=== PATIENT | female | born 1940 | race Caucasian/White ===

== ENCOUNTER 2016-11-03 11:19 | Outpatient (RCR) | payer MEDICARE, OTHER ==
--- OUTSIDE RECORDS SUMMARY | 2016-10-26 13:15 | XMS REPORT ---
Author Author Christine Wade Organization [facility] Address [address] [place], [place] [id number] Care Team Providers Care Design Engineer Name Role Phone Christine Wade PCP Unavailable Allergies and Adverse Reactions Name Reaction Notes Crestor Lipitor Methotrexate alopecia lactose intolerant Plan of Treatment Not available. Medications Active Name Start Date Estimated Completion Date SIG Comments aspirin 81 mg oral tablet,chewable chew 1 tablet by oral route daily folic acid 0.8 mg oral capsule take 1 capsule by oral route daily niacinamide 500 mg oral tablet take 2 tablets by oral route daily Ditropan XL 5 mg oral tablet extended release 24hr take 1 tablet (5 mg) by oral route once daily omeprazole 20 mg oral capsule,delayed release(DR/EC) take 1 capsule by oral route 2 times a day tramadol 50 mg oral tablet take 1 tablet (50 mg) by oral route every 6 hours as needed Vitamin C 1,000 mg oral tablet take 1 tablet by oral route daily Vitamin D3 5,000 unit oral tablet take 1 tablet by oral route daily Zofran ODT 4 mg oral tablet,disintegrating dissolve 1 tablet by oral route every 4 hours as needed for 2 days simethicone 80 mg oral tablet,chewable 08/30/2016 09/29/2016 chew 1 tablet by oral route 2 times a day as needed for 30 days Discontinued Name Start Date Discontinued Date SIG Comments Carafate 1 gram oral tablet 08/30/2016 take 1 tablet (1 gram) by oral route 4 times per day on an empty stomach 1 hour before meals and at bedtime did not work citalopram 10 mg oral tablet 08/30/2016 take 1 tablet (10 mg) by oral route once daily unknown Problem List Not available. Vital Signs Date Time BP-Sys(mm[Hg] BP-Mackenzie(mm[Hg]) HR(bpm) RR(rpm) Temp WT HT HC BMI BSA BMI Percentile O2 Sat(%) 08/30/2016 3:13:00 PM 117 mmHg 62 mmHg 88 bpm 22 rpm 96.3 F 105 lbs 61 in 19.84 kg/m2 1.43 m2 100 % Social History Name Description Comments Alcohol Never Tobacco Never smoker Caffeine Current every day Exercise Aerobics, daily retired History of Procedures Not available. Results Summary Not available. History Of Immunizations Not available. History of Past Illness Name Date of Onset Comments Abdominal Pain Gallbladder sludge 06/26/16 Hyponatremia UTI (lower urinary tract infection) Nausea & vomiting CAD (coronary artery disease) Dyslipidemia GERD (gastroesophageal reflux disease) Osteoarthritis TIA (transient ischemic attack) Trivial aortic valve anomaly Syncope Partial small bowel obstruction High risk medication use Diarrhea Abdominal cramps Heart Attack Weight Change 06/2016 Has lost 30 lbs in a couple of months, unintential Hemorrhoids Arthritis Anemia Diarrhea Aug 30 2016 3:42PM Payers Insurance Name Company Name Plan Name Plan Number Policy Number Policy Group Number Start Date [facility] [id number] N/A [employer] Ppo [id number] N/A History of Encounters Visit Date Visit Type Provider 08/30/2016 Office visit Christine Wade MD
== END 2016-11-10 09:12 | disposition home or self-care (01) ==
LOC: PAR 11:19
PROVIDERS: ATTEND Internal Medicine Hematology & Oncology
DX: C18.0 Malignant neoplasm of cecum (principal)
CPT/HCPCS: 99214